=== PATIENT | female | born 1990 | race Two or more races ===

== ENCOUNTER 2024-03-29 11:35 | Observation (INO) | payer MEDICAID ==
[2024-03-29] MEDS ORDERED: PREN-96 PO (12:35)
[2024-03-29 13:47] LABS: Urine Bacteria None Seen /hpf (None Seen)
[2024-03-29 13:57] LABS: Urine Blood Negative /uL (Negative); Urine Clarity Clear (Clear); Urine Color Colorless (Yellow); Urine Protein, UAD Negative (Negative); Urine Specific Gravity 1.006 (1.001-1.035); Urine Urobilinogen Normal (Negative); Urine WBC 1 /hpf (0 - 5)
== END 2024-03-29 13:19 | disposition home or self-care (01) ==
LOC: UNDOADMOB 11:35 → LDRP 11:35 → UNDODISOB 13:19
PROVIDERS: ADMIT Obstetrics & Gynecology; ATTEND Obstetrics & Gynecology
DX: O24.419 Gestational diabetes mellitus in pregnancy, unspecified control (principal); Z3A.30 30 weeks gestation of pregnancy; Z79.899 Other long term (current) drug therapy
CPT/HCPCS: 59025; 76818; 81001; 81002; 82948; 82962; 87086; 94760; G0378

== ENCOUNTER 2024-04-01 14:37 | Observation (INO) | payer MEDICAID ==
[~2024-04-01 14:37] MED LIST: PREN-96 PO
== END 2024-04-01 17:20 | disposition home or self-care (01) ==
LOC: UNDOADMOB 15:04 → LDRP 15:04 → UNDODISOB 17:20
PROVIDERS: ADMIT Obstetrics & Gynecology; ATTEND Obstetrics & Gynecology
DX: O24.415 Gestational diabetes mellitus in pregnancy, controlled by oral hypoglycemic drugs (principal); Z3A.31 31 weeks gestation of pregnancy; Z79.84 Long term (current) use of oral hypoglycemic drugs
CPT/HCPCS: 59025; 76818; 81002; 94760; G0378

== ENCOUNTER 2024-04-05 16:11 | Observation (INO) | payer MEDICAID ==
[~2024-04-05] VITALS: Ht 149.9 cm; Wt 98.0 kg
[2024-04-05 17:17] LABS: Urine Amorphous Crystal FEW /hpf (None Seen); Urine Bacteria FEW /hpf (None Seen); Urine Blood TRACE /uL (Negative); Urine Clarity Turbid (Clear); Urine Color Colorless (Yellow); Urine Mucus FEW (None Seen); Urine Protein, UAD TRACE (Negative); Urine Specific Gravity 1.016 (1.001-1.035); Urine Urobilinogen Normal (Negative); Urine WBC 15 /hpf (0 - 5)
[2024-04-05 17:19] LABS: Fern Testing Negative
[2024-04-05 17:30] LABS: Vaginal Bacteria Few; Vaginal Trichomonas Not Present
[2024-04-05 17:31] LABS: Vaginal Clue Cells None Seen; Vaginal Epithelial Cells Moderate
== END 2024-04-05 18:00 | disposition home or self-care (01) ==
LOC: UNDOADMOB 16:11 → LDRP 16:11 → UNDODISOB 18:00
PROVIDERS: ADMIT Obstetrics & Gynecology; ATTEND Obstetrics & Gynecology
DX: O24.419 Gestational diabetes mellitus in pregnancy, unspecified control (principal); O42.913 Preterm premature rupture of membranes, unspecified as to length of time between rupture and onset of labor, third trimester; Z3A.31 31 weeks gestation of pregnancy
CPT/HCPCS: 59025; 76818; 81001; 81002; 82948; 82962; 84112; 87210; 94760; G0378; Q0114

== ENCOUNTER 2024-04-08 08:45 | Observation (INO) | payer MEDICAID | END 2024-04-08 13:09 | disposition home or self-care (01) | LOC: LDRP 11:16 → UNDOADMOB 11:16 → LDRP 11:19 → UNDODISOB 13:09 | PROVIDERS: ADMIT Obstetrics & Gynecology; ATTEND Obstetrics & Gynecology | DX: O24.419 Gestational diabetes mellitus in pregnancy, unspecified control (principal); Z3A.32 32 weeks gestation of pregnancy | CPT/HCPCS: 59025; 76818; 81002; 82948; 82962; 94760; G0378 ==

== ENCOUNTER 2024-04-12 08:31 | Observation (INO) | payer MEDICAID | END 2024-04-12 16:18 | disposition home or self-care (01) | LOC: UNDOADMOB 14:06 → LDRP 14:06 | PROVIDERS: ADMIT Obstetrics & Gynecology; ATTEND Obstetrics & Gynecology | DX: O24.419 Gestational diabetes mellitus in pregnancy, unspecified control (principal); Z3A.32 32 weeks gestation of pregnancy | CPT/HCPCS: 59025; 76818; 81002; 82948; 82962; 94760; G0378 ==

== ENCOUNTER 2024-04-15 08:25 | Observation (INO) | payer MEDICAID ==
[2024-04-15] MEDS ORDERED: GLYB2.5T8 PO (15:04)
== END 2024-04-15 15:45 | disposition home or self-care (01) ==
LOC: LDRP 14:00
PROVIDERS: ADMIT Obstetrics & Gynecology; ATTEND Obstetrics & Gynecology
DX: O24.419 Gestational diabetes mellitus in pregnancy, unspecified control (principal); O40.3XX0 Polyhydramnios, third trimester, not applicable or unspecified; Z3A.33 33 weeks gestation of pregnancy
CPT/HCPCS: 59025; 76818; 81002; 82948; 82962; 94760; G0378

== ENCOUNTER 2024-04-19 14:10 | Observation (INO) | payer MEDICAID ==
[~2024-04-19 14:10] MED LIST changes: +GLYB2.5T8 PO
== END 2024-04-19 17:11 | disposition home or self-care (01) ==
LOC: LDRP 14:10 → UNDOADMOB 14:10 → LDRP 14:37 → UNDODISOB 17:11
PROVIDERS: ADMIT Obstetrics & Gynecology; ATTEND Obstetrics & Gynecology
DX: O24.419 Gestational diabetes mellitus in pregnancy, unspecified control (principal); Z3A.33 33 weeks gestation of pregnancy
CPT/HCPCS: 59025; 76818; 81002; 82948; 82962; 94760; G0378

== ENCOUNTER 2024-04-22 08:28 | Observation (INO) | payer MEDICAID | END 2024-04-22 14:35 | disposition home or self-care (01) | LOC: UNDOADMOB 13:00 → LDRP 13:00 | PROVIDERS: ADMIT Obstetrics & Gynecology; ATTEND Obstetrics & Gynecology | DX: O24.419 Gestational diabetes mellitus in pregnancy, unspecified control (principal); O40.3XX0 Polyhydramnios, third trimester, not applicable or unspecified; Z3A.34 34 weeks gestation of pregnancy | CPT/HCPCS: 59025; 76818; 81002; 82948; 82962; 94760; G0378 ==

== ENCOUNTER 2024-04-26 14:03 | Observation (INO) | payer MEDICAID | END 2024-04-26 16:15 | disposition home or self-care (01) | LOC: UNDOADMOB 14:03 → LDRP 14:03 → UNDODISOB 16:15 | PROVIDERS: ADMIT Obstetrics & Gynecology; ATTEND Obstetrics & Gynecology | DX: O24.415 Gestational diabetes mellitus in pregnancy, controlled by oral hypoglycemic drugs (principal); Z3A.34 34 weeks gestation of pregnancy; Z79.84 Long term (current) use of oral hypoglycemic drugs; Z98.891 History of uterine scar from previous surgery | CPT/HCPCS: 59025; 76818; 81002; 82948; 82962; 94760; G0378 ==

== ENCOUNTER 2024-04-29 14:06 | Observation (INO) | payer MEDICAID | END 2024-04-29 15:51 | disposition home or self-care (01) | LOC: UNDOADMOB 14:06 → LDRP 14:06 → UNDODISOB 15:51 | PROVIDERS: ADMIT Obstetrics & Gynecology; ATTEND Obstetrics & Gynecology | DX: O24.419 Gestational diabetes mellitus in pregnancy, unspecified control (principal); Z3A.35 35 weeks gestation of pregnancy | CPT/HCPCS: 59025; 76818; 81002; 82948; 82962; 94760; G0378 ==

== ENCOUNTER 2024-05-03 14:40 | Observation (INO) | payer MEDICAID | END 2024-05-03 17:35 | disposition home or self-care (01) | LOC: LDRP 14:40 → UNDOADMOB 14:40 → LDRP 15:56 → UNDODISOB 17:35 | PROVIDERS: ADMIT Obstetrics & Gynecology; ATTEND Obstetrics & Gynecology | DX: O24.419 Gestational diabetes mellitus in pregnancy, unspecified control (principal); Z3A.35 35 weeks gestation of pregnancy; Z79.84 Long term (current) use of oral hypoglycemic drugs | CPT/HCPCS: 59025; 76818; 81002; 82948; 82962; G0378 ==

== ENCOUNTER 2024-05-06 19:00 | Observation (INO) | payer MEDICAID | END 2024-05-06 20:48 | disposition home or self-care (01) | LOC: LDRP 19:00 | PROVIDERS: ADMIT Obstetrics & Gynecology; ATTEND Obstetrics & Gynecology | DX: O24.419 Gestational diabetes mellitus in pregnancy, unspecified control (principal); O26.893 Other specified pregnancy related conditions, third trimester; R19.7 Diarrhea, unspecified; Z3A.36 36 weeks gestation of pregnancy | CPT/HCPCS: 59025; 76818; 81002; 82948; 82962; 94760; G0378 ==

== ENCOUNTER 2024-05-10 14:00 | Observation (INO) | payer MEDICAID | END 2024-05-10 15:18 | disposition home or self-care (01) | LOC: LDRP 14:00 → UNDOADMOB 14:00 → LDRP 14:10 | PROVIDERS: ADMIT Obstetrics & Gynecology; ATTEND Obstetrics & Gynecology | DX: O24.419 Gestational diabetes mellitus in pregnancy, unspecified control (principal); O62.9 Abnormality of forces of labor, unspecified; Z3A.36 36 weeks gestation of pregnancy | CPT/HCPCS: 59025; 76818; 81002; 82948; 82962; 94760; G0378 ==

== ENCOUNTER 2024-05-13 15:30 | Observation (INO) | payer MEDICAID ==
[2024-05-16] MEDS ORDERED: [UNRECOGNIZED DRUG - CODE] VA (16:23)
== END 2024-05-13 17:09 | disposition home or self-care (01) ==
LOC: LDRP 15:30
PROVIDERS: ADMIT Obstetrics & Gynecology; ATTEND Obstetrics & Gynecology
DX: O24.419 Gestational diabetes mellitus in pregnancy, unspecified control (principal); Z3A.37 37 weeks gestation of pregnancy
CPT/HCPCS: 59025; 76818; 81002; 82948; 82962; 94760; G0378

== ENCOUNTER → 2024-05-16 16:40 | Observation (INO) | payer MEDICAID ==
[~2024-05-16 16:40] MED LIST changes: +DOCU-94 PO; +FER325T PO; +HYDR-4902 PO; +IBUP-1456 PO; +PERCOT PO; +[UNRECOGNIZED DRUG - CODE] VA
== END | disposition home or self-care (01) ==
LOC: UNDOADMOB 05-16 15:09 → LDRP 05-16 15:09 → UNDOADMOB 14:48 → LDRP 14:48 → UNDODISOB 16:40
PROVIDERS: ADMIT Obstetrics & Gynecology; ATTEND Obstetrics & Gynecology
DX: O62.9 Abnormality of forces of labor, unspecified (principal); O24.419 Gestational diabetes mellitus in pregnancy, unspecified control; Z3A.37 37 weeks gestation of pregnancy
CPT/HCPCS: 59025; 81002; 94760; G0378

== ENCOUNTER 2024-05-20 13:55 | Observation (INO) | payer MEDICAID ==
[~2024-05-20 13:55] MED LIST changes: -DOCU-94 PO; -FER325T PO; -HYDR-4902 PO; -IBUP-1456 PO; -PERCOT PO
== END 2024-05-20 15:43 | disposition home or self-care (01) ==
LOC: LDRP 13:55 → UNDOADMOB 13:55 → LDRP 14:01 → UNDODISOB 15:43
PROVIDERS: ADMIT Obstetrics & Gynecology; ATTEND Obstetrics & Gynecology
DX: O24.419 Gestational diabetes mellitus in pregnancy, unspecified control (principal); O09.523 Supervision of elderly multigravida, third trimester; Z3A.38 38 weeks gestation of pregnancy
CPT/HCPCS: 59025; 76818; 81002; 82948; G0378

== ENCOUNTER 2024-05-22 04:54 | Inpatient (IN) | payer MEDICAID ==
[2024-05-20 15:50] LABS: Basophils # (auto) 0.1 10 ^3/uL (0-0.2); Basophils % (auto) 0.7 % (0.0-2.0); Eosinophils # (auto) 0.1 10 ^3/uL (0-0.8); Eosinophils % (auto) 0.8 % (0.0-7.0); Hematocrit 28.1 % (36.0-46.0); Lymphocytes # (auto) 1.9 10 ^3/uL (0.4-5.4); Lymphocytes % (auto) 23.2 % (10.0-50.0); Mean Corpuscular Hemoglobin 21.1 pg (28.0-32.0); Monocytes # (auto) 0.6 10 ^3/uL (0-1.3); Neutrophils # (auto) 5.6 10 ^3/uL (1.6-8.6); Neutrophils % (auto) 68.3 % (37.0-80.0); Red Blood Cells 4.26 10^6/uL (4.0-5.20); Red Cell Distribution Width 19.3 % (11.8-14.3); White Blood Cell 8.2 10^3/uL (4.4-10.8)
[2024-05-20 16:04] LABS: INR 0.9 (0.9-1.15); Partial Thromboplastin Time 23.4 SEC (24.5-34.5); Prothrombin Time 9.6 sec (9.3-11.8)
[2024-05-20 16:09] LABS: Alanine Aminotransferase < 9 U/L (7-40); Albumin 3.7 g/dL (3.2-4.8); Alkaline Phosphatase 160 U/L (46-116); Anion Gap 8 (5-15); Aspartate Aminotransferase 14 U/L (13-40); BUN/Creatinine Ratio 10.7 (10.0-20.0); Bilirubin, Total 0.5 mg/dL (0.2-1.0); Blood Urea Nitrogen 6 mg/dL (9-23); Calcium 9.8 mg/dL (8.7-10.4); Carbon Dioxide 21 mmol/L (20-30); Chloride 109 mmol/L (98-107); Glucose 100 mg/dL (74-106); Potassium 3.7 mmol/L (3.5-5.1); Sodium 138 mmol/L (136-145); Total Protein 6.5 g/dL (5.7-8.2)
[2024-05-22] VITALS (16 sets, daily range): BP systolic 93–119; BP diastolic 46–78; PULSE 60–95; RESP 16–47; TEMP 98.1–98.2; O2SAT 96–99
[~2024-05-22] VITALS: Ht 149.9 cm; Wt 99.8 kg
[2024-05-22] MEDS: LACTATED RINGER'S 1,000 ML IV ONE (05:59)
[2024-05-22] MEDS: LACTATED RINGER'S 1,000 ML IV SCH (06:00)
[2024-05-22 06:14] LABS: Amphetamine Screen, Urine Neg (NEGATIVE); Barbiturate Scree,Urine Neg (NEGATIVE); Benzodiazephine Screen, Urine Neg (NEGATIVE); Cannabinoid Screen, Urine Neg (NEGATIVE); Cocaine Screen, Urine Neg (NEGATIVE); Opiate Scree,Urine Neg (NEGATIVE); Phencyclidine Screen, Urine Neg (NEGATIVE)
[2024-05-22 06:16] LABS: Urine Bacteria FEW /hpf (None Seen); Urine Blood Negative /uL (Negative); Urine Clarity Clear (Clear); Urine Color Colorless (Yellow); Urine Protein, UAD Negative (Negative); Urine Specific Gravity 1.005 (1.001-1.035); Urine Urobilinogen Normal (Negative); Urine WBC 1 /hpf (0 - 5); Urine pH 6.5 (5.0-9.0)
[2024-05-22] MEDS ORDERED: IBUP-1456 PO (08:03)
[2024-05-22] MEDS ORDERED: HYDR-4902 PO (08:03)
[2024-05-22] MEDS ORDERED: DOCU-94 PO (08:03)
[2024-05-22] MEDS ORDERED: KETOROLAC TROMETH 30 MG/ML 1ML VIAL ONE (08:47)
[2024-05-22] MEDS ORDERED: MORPHINE SULF PF 5 MG/10 ML VIAL ONE (08:47)
[2024-05-22] MEDS ORDERED: GLYCOPYRROLATE 0.2 MG/ML 1ML VIAL ONE (08:47)
[2024-05-22] MEDS ORDERED: ePHEDrine SULFATE 50 MG/ML AMP ONE (08:47)
[2024-05-22] MEDS ORDERED: ONDANSETRON HCL 4 MG/2 ML VIAL ONE (08:47)
[2024-05-22] MEDS ORDERED: oxyTOCIN 10 UNIT/ML 10ML VIAL ONE (08:47)
[2024-05-22] MEDS ORDERED: fentaNYL CITRATE 100 MCG/2 ML VL ONE (08:47)
[2024-05-22] MEDS ORDERED: ONDANSETRON HCL 4 MG/2 ML VIAL IV PRN ×3 (09:00→12:00)
[2024-05-22] MEDS ORDERED: ceFAZolin 1GM/50ML 50 ML IV SCH (09:00)
[2024-05-22] MEDS: ceFAZolin 2 GM/D5W50ml 50 ML IV ONE (09:00)
[2024-05-22] MEDS ORDERED: GUM (CHEWING) 1 GUM CHEW CHEW ONE (09:00)
[2024-05-22] MEDS ORDERED: KETOROLAC TROMETH 30 MG/ML 1ML VIAL IV ONE (10:30)
[2024-05-22] MEDS ORDERED: ACCU-CHEK COMFORT CURVE STRIP VI ONE (10:30)
[2024-05-22] MEDS ORDERED: DexAMETHasone SOD PHOS 10MG/1ML VIAL INJ IV PRN (10:30)
[2024-05-22] MEDS ORDERED: NALOXONE HCL 0.4 MG/ML VIAL IV PRN (10:30)
[2024-05-22] MEDS ORDERED: LACTATED RINGER'S 1,000 ML IV SCH (12:00)
[2024-05-22] MEDS: diphenhdrAMINE HCL 50 MG/1 ML VL IV PRN (12:30)
[2024-05-22] MEDS: ACETAMINOPHEN IV 1000 MG/100ML (10MG/ML) IV PRN (13:53)
[2024-05-22] MEDS ORDERED: KETOROLAC TROMETH 30 MG/ML 1ML VIAL IV PRN (16:30)
[2024-05-22] MEDS: ceFAZolin 1GM/50ML 50 ML IV SCH (16:46)
[2024-05-22 22:19] LABS: Basophils # (auto) 0 10 ^3/uL (0-0.2); Basophils % (auto) 0.1 % (0.0-2.0); Eosinophils # (auto) 0 10 ^3/uL (0-0.8); Hemoglobin 8.6 g/dL (12.2-16.2); Red Cell Distribution Width 19.3 % (11.8-14.3)
[2024-05-22 22:21] LABS: Lymphocytes # (auto) 1.5 10 ^3/uL (0.4-5.4); Lymphocytes % (auto) 12.1 % (10.0-50.0); Mean Corpuscular Hemoglobin 20.3 pg (28.0-32.0); Mean Corpuscular Hgb Conc. 30.6 g/dL (32.0-36.0); Mean Corpuscular Volume 66.4 fL (80.0-100.0); Monocytes # (auto) 0.5 10 ^3/uL (0-1.3); Monocytes % (auto) 4.5 % (0.0-12.0); Neutrophils % (auto) 83.3 % (37.0-80.0); Red Blood Cells 4.22 10^6/uL (4.0-5.20)
[2024-05-22] MEDS: FAMOTIDINE (10MG/ML) 2ML VL IV SCH (22:28)
[2024-05-23] VITALS (15 sets, daily range): BP systolic 77–125; BP diastolic 44–79; PULSE 63–97; RESP 16–20; TEMP 97.6–98.8; O2SAT 95–98
[2024-05-23] MEDS ORDERED: HYDROcodone-ACET 5/325MG TAB PO PRN (06:30)
[2024-05-23 06:37] LABS: Eosinophils # (auto) 0 10 ^3/uL (0-0.8); Lymphocytes # (auto) 2.4 10 ^3/uL (0.4-5.4); Mean Corpuscular Hgb Conc. 31.6 g/dL (32.0-36.0); Neutrophils # (auto) 7.9 10 ^3/uL (1.6-8.6)
[2024-05-23 06:40] LABS: Basophils # (auto) 0.1 10 ^3/uL (0-0.2); Basophils % (auto) 0.5 % (0.0-2.0); Eosinophils % (auto) 0.2 % (0.0-7.0); Hematocrit 26.7 % (36.0-46.0); Hemoglobin 8.4 g/dL (12.2-16.2); Mean Corpuscular Hemoglobin 20.9 pg (28.0-32.0); Mean Corpuscular Volume 66.2 fL (80.0-100.0); Monocytes % (auto) 8.9 % (0.0-12.0); Neutrophils % (auto) 69.4 % (37.0-80.0); Red Blood Cells 4.03 10^6/uL (4.0-5.20); Red Cell Distribution Width 19.3 % (11.8-14.3); White Blood Cell 11.3 10^3/uL (4.4-10.8)
[2024-05-23] MEDS: HYDROcodone-ACET 5/325MG TAB PO PRN (07:03)
[2024-05-23] MEDS: SIMETHICONE 80 MG CHEWABLE TABLET PO SCH (18:38)
[2024-05-23] MEDS: FERROUS SULFATE 325mg EC TAB PO SCH (18:38)
[2024-05-23] MEDS: SODIUM CITR/CITRIC ACID ORAL SOLN 30 ML PO ONE (19:40)
[2024-05-23] MEDS: ONDANSETRON HCL 4 MG/2 ML VIAL IV ONE (19:40)
[2024-05-23] MEDS: LACT. RINGERS/OXYTOCIN 20UNITS 1,000 ML IV ONE (20:44)
[2024-05-23] MEDS: IBUPROFEN 800 MG TAB PO PRN (21:26)
[2024-05-23] MEDS: DOCUSATE SOD 100 MG CAP PO SCH (21:27)
[2024-05-24] MEDS ORDERED: FER325T PO (02:40)
[2024-05-24 03:00] VITALS: BP 121/76; PULSE 89; RESP 18; TEMP 99.8; O2SAT 97
[2024-05-24 03:26] VITALS: TEMP 98.5
[2024-05-24 06:50] VITALS: BP 114/71; PULSE 78; RESP 17; TEMP 98.8; O2SAT 99
[2024-05-24] MEDS ORDERED: PERCOT PO (09:50)
[2024-05-24 10:33] VITALS: BP 118/69; PULSE 70; RESP 16; TEMP 98.6; O2SAT 100
== END 2024-05-24 12:37 | disposition home or self-care (01) | DRG 539 ==
LOC: UNDOADMIN 04:54 → LDRP 04:54
PROVIDERS: ADMIT Obstetrics & Gynecology; ATTEND Obstetrics & Gynecology
PROC: 10D00Z1 Extraction of Products of Conception, Low, Open Approach (ICD-10-PCS; 2024-05-22)
PROC: 0UL70CZ Occlusion of Bilateral Fallopian Tubes with Extraluminal Device, Open Approach (ICD-10-PCS; principal; 2024-05-22 09:08)
DX: O34.211 Maternal care for low transverse scar from previous cesarean delivery (principal); D64.9 Anemia, unspecified; O24.429 Gestational diabetes mellitus in childbirth, unspecified control; O99.214 Obesity complicating childbirth; E66.01 Morbid (severe) obesity due to excess calories; Z3A.38 38 weeks gestation of pregnancy; Z37.0 Single live birth; Z30.2 Encounter for sterilization
CPT/HCPCS: 36415; 59025; 80053; 80307; 81001; 82962; 85025; 85610; 85730; 86592; 86850; 86900; 86901; 94760; 94762; 96360; 96361; 96374; 96375; G0378; J0131; J1885; J2405; J2590; J3490